=== PATIENT | male | born 1960 | race Caucasian/White ===

== ENCOUNTER 2021-03-08 09:17 | Inpatient (IN) | payer OTHER ==
[~2021-03-08] VITALS: Ht 182.9 cm; Wt 129.5 kg
[~2021-03-08 09:17] MED LIST: CLARITIN10 M2 PO; METHOCARBAMOL750 MG PO; NORCO 7.5-3251 EACH PO; OMEPRAZOLE20 MG PO; SSD20 GM TOP; TAMSULOSIN HCL0.4 MG PO
[2021-03-08] MEDS ORDERED: DICLOFENAC SODI75 MG PO (09:46)
[2021-03-08] MEDS ORDERED: FEXOFENADINE HC60 MG PO (09:46)
--- NOTE | 2021-03-08 13:27 | NUR ---
REPORT RECEIVED FROM CHELE RODRIGUEZ. AWAITING PTS ARRIVAL TO MED/SURG.
--- NOTE | 2021-03-08 13:49 | NUR ---
PT ARRIVED FROM ER. PT TRANSFERS SELF TO BED. PT ABLE TO STAND AND MARCH IN PLACE AND DENIES DIZZINESS OR FEELINGS OF LIGHTHEADEDNESS. OXGYEN SATURATIONS REMAIN 88-92% ON 2L O2 BY NC EVEN WITH ACTIVITY. PT AMBULATES TO RESTROOM WITH STAND BY ASSIST. PT DENIES PAIN AND NAUSEA. PT DENIES ANY RECENT EPISODES OF DIARRHEA. PT REPORTS HE HAS NOT LOST HIS SENSE OF TASTE OR SMELL. PT REPORTS OCCATIONAL NASUEA WITH COVID, DENIES EMEISIS. PT CONFIRMS WEEKNESS STATING "I DONT' HAVE THE ABILITY TO GET UP AND GO." PT DENIES ANY FEELS OF UNSTEADINESS ON FEET. LUNG SOUNDS CLEAR BUT FOR CORNESS NOTED IN RIGTH LOWER LOBE. PT REMAINS ON 2L O2 BY NC WITH OXGYEN SATURATIONS MAINTAINING ABOVE 90%. NOTED THAT PT NEEDED 4L O2 BY NC WITH AMBULATION. I.S. AND PRONING EDUCATION DONE WITH PT. PT DEMONSTRATES USE OF I.S. REACHIGN 2250ML X5. DRY COUGH NOTED. PT REPORTS HE OCCATIONALL COUGHS UP CLEAR/WHITE STUFF. PT DENIES LOSS OF TATES OR SMELL BUT DOES REPORT DECREASED APPITTIE WITH MINIMAL INTAKE FOR THE PAST FEW DAYS. MEDICATIONS GIVEN. PT DENIES ADDITIONAL REQEUSTS OR COMLAINTS. CALL LIGHT EDUCATION DONE. PT DEMONSTRATES UNDERSTANDING. BED RAILS UP. PT RESTING ON BACK. DECLINES SIDE LYING OR PRONING AT THSI TIME. REMAINS ON 2L O2 BY NC WITH OXGYEN SATURATIONS 90-93%.
--- NOTE | 2021-03-08 14:43 | NUR ---
PUMP ALARMING INFUSION AND FLUSH COMPLETE. IV ASSESSED, WNL. MEDICATION GIVEN AND IV SALINE LOCKED AT THIS TIME. OXGYEN SATURATION NOTED TO BE 86-89%. PT INCRESED TO 4L O2 BY NC. PT AGREES TO LYE ON RIGHT SIDE, CONTINUES TO DECLINE PRONE POSITION. OXGYEN SATURATINS RECOVER. OXGYEN SATURATIONS MAINTAINING ABOVE 90%. NO ADDITIONAL REQUESTS OR COMPLAINTS. CALL LIGHT WITHIN REACH. BED RAILS UP.
--- NOTE | 2021-03-08 15:38 | NUR ---
PT CALL LIGHT ON. PT REQUESTS STAND BY ASSIST WHILE UP TO RESTROOM. PT SITTING ON EDGE OF BED WITH OXGYEN SATRUATIONS 85%. RT CALLED FOR HIGH FLOW NC WITH HUMIDIFICATION. O2 INCREASED TO 8L O2 BY NC WITH ACTIVITY TO MAINTAIN STATUATIONS ABOVE 90%. STAND BY ASSIST UP TO RESTROOM. PT VOIDS WITHOUT ISSUE. STAND BY ASSIST BACK TO BED. PT ASSISTED TO SIDE LYING POSITION ON LEFT SIDE. PT WEANED BACK TO 6L O2 BY NC. HIGH FLOW NC WITH HUMIDIFICATION IN PLACE. PT DENEIS ADDITIONAL REQUESTS OR COMPLAINTS. CALL LIGHT WITHIN REACH. BED RAILS UP.
--- NOTE | 2021-03-08 16:00 | NUR ---
PTS SON VONNIE, CALLED AND UPDATED ON PTS STATUS AND PLAN OF CARE. VONNIE VERBALIZES UNDERSTANDING AND STATES HIS QUESTIONS HAVE BEEN ANSWERED.
--- NOTE | 2021-03-08 16:54 | NUR ---
THIS RN TO ROOM TO CHECK ON PT. OXGYEN SATURATION 87% ON 6L O2 BY NC. PT SITTING ON EDGE OF BED REPORTING HE IS GETTING UP TO RESTROOM. OXYGEN INCREASED TO 8L O2 BY NC AND PT RECOVERS TO 90%. SBA UP TO RESTROOM. PT VOIDS WITHOUT ISSUE. SBA UP TO CHAIR FOR DINNER. PT REMAINS ON 8L O2 BY NC WHEN UP TO CHAIR TO MAINTAIN OXYGEN SATURATIONS ABOVE 90%. PT DENIES ADDITIONAL REQUESTS OR COMPLAINTS. CALL LIGHT WITHIN REACH.
--- NOTE | 2021-03-08 18:15 | NUR ---
THIS RN TO ROOM TO CHECK ON PT. PT REMAINS UP TO CHAIR, FINISHING DINNER. OXGYEN SATURATIONS 95% ON 8L O2 BY NC. PT DENIES REQUESTS OR COMPLAINTS. CALL LIGHT WITHIN REACH.
--- NOTE | 2021-03-08 18:33 | NUR ---
PT ADMITTED THIS SHIFT FOR COVID PNEUMONIA. PT ARRIVED ON 2L O2 BY NC BUT WAS FOUND TO NEED 6-8L O2 BY NC TO MAINTAIN OXYGEN SATURATIONS ABOVE 90% (6L AT REST AND 8L WITH ACTIVITY. PT UP WITH STAND BY ASSIST TO CHAIR AND RESTROOM. PRONING EDUCATION DONE WITH PT, PT HAS SO FAR DECLINED TO PRONE. PT DEMONSTRATES USE OF I.S WITH ENCOURAGMENT. PT DENIES DIARRHEA OR NAUSEA THIS SHIFT. NO LOSS OF TASTE OR SMELL NOTED BUT PT REPORTS MINIMAL APPITITE. D-DIMER ELVATED, CT AND CHEST X-RAY DONE. PT VOIDING QUANITTY SUFFICIENT. PT USES CALL LIGHT AND MAKES NEEDS KNOWN.
--- NOTE | 2021-03-08 18:57 | NUR ---
PT CALL LIGHT ON. PT REQUESTS ASSTANCE UP TO RESTROOM. STAND BY ASSIST UP TO RESTROOM. PT MAINTAINING OXGYEN SATURATIONS ABOVE 90% ON 8L O2 BY NC. STAND BY ASSIST BACK TO BED. PT RESTING ON BACK, DECLINES PRONING OR SIDE LYING AT THIS TIME. PT WEANED TO 6L O2 BY NC. NO ADDITIONAL REQUESTS OR COMPLAINTS. CALL LIGHT WITHIN REACH. BED RAILS UP.
--- NOTE | 2021-03-08 20:00 | NUR ---
PATIENT CURRENTLY WATCHING TV IN BED, PATIENT HAS NO CURRENT CARE NEEDS, O2 SAT 92% ON 6L/CN. CALL LIGHT IS IN REACH.
--- NOTE | 2021-03-08 22:08 | NUR ---
Patient via, SBA bathroom. vitals, I&Os are complete.
--- NOTE | 2021-03-08 22:24 | NUR ---
PATIENT UP TO THE BATHROOM INDEPENDENTLY AND BACK TO BED. PATIENT DENIES PAIN AND TOOK CODEINE COUGH SYRUP AND TESSALON JUAN CARLOS FOR COUGH. DR. BENJAMIN HAD BEEN CALLED ABOUT ORDERS FOR DICLOFENAC AND ALICE. ORDERED THE ALICE, BUT NONE AVAILABLE AT THIS TIME AND MOTRIN WAS PRESCRIBED FOR DISCOMFORT, BUT PATIENT DOES NOT WANT THIS HE STILL HAS DICLOFENAC IN HIS SYSTEM. DISCUSSED TURNING AND PRONING AND PATIENT KNOWLEGDEABLE. PATIENT IS TITRATING O2 WHEN HE GETS UP OR DOES ANYTHING. PATIENT CURRENTLY ON 6L/NC WITH O2 SATS AT 92% AND HR=70. CPOX BATTERY CHANGED AND NEW WATER AND WARM BLANKETS GIVEN. PATIENT HAS NO THER QUESTIONS OR NEEDS AT THIS TIME. LIGHTS ARE TURNED DOWN AND CALL LIGHT IS IN REACH.
--- NOTE | 2021-03-08 23:46 | NUR ---
PATIENT RESTING QUIETLY ON HIS LEFT SIDE AT THIS TIME. O2 SATS 89% ON 6L/NC. NO CURRENT CARE NEEDS NOTED. CALL LIGHT IS IN REACH.
--- NOTE | 2021-03-09 00:29 | NUR ---
PATIENT'S O2 SATS DROPPED TO 80% AND THIS RN WENT TO CHECK ON THE PATIENT. PATIENT WAS HAVING A COUGHING FIT THAT HAS NOW SETTLED AND 02 SAT IS 90% ON 6L/NC NOW. URINE IN THE BATHROOM DUMPED, PATIENT HAVING NO OTHER NEEDS AT THIS TIME. CALL LIGHT IS IN REACH.
--- NOTE | 2021-03-09 01:53 | NUR ---
Vitals, I&Os are complete. Patient is going to try to get some rest. Patient si curretly lying on his back, but may lay on side later after talking with the RN about proning.
--- NOTE | 2021-03-09 02:14 | NUR ---
PATIENT'S 2AM ASSESSMENT WAS COMPLETE AND VS WERE STABLE EXCEPT PATIENT'S O2 SATS HAVE BEEN SLOWLY DROPPING WHILE ON HIS LEFT SIDE, HAD PATIENT REPOSITION TO HIS RIGHT SIDE FOR ABOUT 15 MINUTES AND SATS ONLY GOT UP TO 89%. JUST TITRATED PATIENT UP TO 8L/NC AND PATIENT REMAINS ON HIS RIGHT SIDE WITH O2 SAT AT 90%. CALL LIGHT IS IN REACH.
--- NOTE | 2021-03-09 02:38 | NUR ---
PATIENT REMAINS ON HIS RIGHT SIDE, RESPIRATIONS ARE REGULAR AND EVEN, EYES ARE CLOSED, O2 SAT 92% ON 8L/NC HIGH FLOW. CALL LIGHT IS IN REACH.
--- NOTE | 2021-03-09 06:12 | NUR ---
Patient is lying awake somewhat on right side. Vitals, I&Os are complete.
--- NOTE | 2021-03-09 06:25 | NUR ---
PATIENTS VITALS TAKEN AND RECORDED. INTAKE AND OUPUT RECORDED. PATIENT DENIES ANY NEEDS. PATIENT DENIES ANY SOB. CALL LIGHT AND BELONGINGS ARE WITHIN REACH.
--- NOTE | 2021-03-09 07:46 | NUR ---
this rn received report from rosalina jean. pt sats 83-87% on 8l. pt states he "prones when he can" pt laying flat on back at this time. rosalina jean and this rn educated pt about repositioning himself onto his side
--- NOTE | 2021-03-09 09:00 | NUR ---
this rn in pts room to do pts morning meds and morning assessment. pt states in the am that his sats are lower than normal because he feels like he is spending a lot of time blowing his nose and getting the mucous out. this rn to provide pt with tessalon pearles and psuedfed for comfort. pt has no other concerns at this time.
--- NOTE | 2021-03-09 09:00 | NUR ---
this rn in pts room to do pts assessment and give meds. pt states that he has been attempting to change positions all night, pt states he is attempting to side prone all he can, this rn encouraged pt to do it more. pt states that all he is "try my best" this rn will continue to encourage pt to prone pt has no other concerns this am
--- NOTE | 2021-03-09 10:15 | NUR ---
PT OXYGENADJUSTED TO 10LPM FROM 8 LPM SPO2 WAS 84% ON 8LPM. SPO2 ON 10LPM WAS 90 AT REST . PT MAY REQUIRE PREOXYGENATION FOR MOVEMENT ACTIVITIES.
--- NOTE | 2021-03-09 10:21 | NUR ---
AFTER KATE FROM RT IN ROOM, PT UP TO RESTROOM, PT DESATED TO 82% ON 10L HIGH FLOW. THIS RN INSTRUCTED TO GET BACK TO BED SOON AND PRONE. PT STATES HE WILL- SATS FINALLY UP TO 93%.
--- NOTE | 2021-03-09 11:10 | NUR ---
THIS RN IN PTS ROOM TO TURN PT UP TO 11L HIGH FLOW DUE TO PT DESATING BETWEEN 87-90%. THIS RN DID NOTE THAT THE WALL MONITOR FOR PTS O2 WAS READING 91% WHILE TELE BOX WAS READING 88%. THIS RN TO UPDATE DANNI FROM RT.
--- NOTE | 2021-03-09 12:45 | NUR ---
CONNECTED WITH PT'S RN KARISSA THAT IF PT DESIRES I AM AVAILABLE TO CONNECT BY PHONE OR IN PERSON VISIT IF PT IS UP TO IT. SHE ACKNOWLEDGED
--- NOTE | 2021-03-09 13:57 | EKG ---
[facility] [address] [place] [address] Signed Normal sinus rhythm Incomplete right bundle branch block Borderline ECG When compared with ECG of 06-JAN-2020 15:13, No significant change was found Confirmed by YESENIA BENJAMIN MD ([id number]) on 03/09/2021 1:57:31 PM Electronically Signed By: YESENIA BENJAMIN MD 03/09/21 1357 PATIENT NAME: NOHEMYVONNIE HURLEY Electrocardiogram DATE OF : 62 PHYSICIAN: YESENIA BENJAMIN MD REPORT #: [id number] REPORT IS CONFIDENTIAL AND NOT TO BE RELEASED WITHOUT AUTHORIZATION
--- NOTE | 2021-03-09 15:00 | NUR ---
THIS RN IN PTS ROOM TO START REMDES. PT PRONING AND SATING BETWEEN 88-90%. PT STATES THAT HE DOESNT NEED ANYTHING FUTHER
--- NOTE | 2021-03-09 16:03 | NUR ---
C JAVA DEVELOPER SUGGESTS TO TRY AND SPEAK WITH PATIENT TOMORROW. WILL CHECK BACK AGAIN IN AM.
--- NOTE | 2021-03-09 17:00 | NUR ---
PT SHOME CPAP IN ROOM. KATE FROM RT ABLE TO GET PT TO HAVE 15L BLEED INTO CPAP- SATS IMPROVED TO 95%
--- NOTE | 2021-03-09 17:49 | NUR ---
PT HAD LOW SPO2 ALL DAY ON 15LPM NC , PT PLACED ON HOME CPAP THAT WAS JUST BROUGHT IN PRESSURE OF 9 HEATED HUMDITY WITH 15LPM BLEED IN AND TOLERATING IR WELL, PATIENT HAS BEEN INSTRUCTED TO TRY TO PRONE AND SWITCH POSITIONS OFTEN.
--- NOTE | 2021-03-09 19:52 | NUR ---
RECEIVED RPORT FROM DAY SHIFT RN. PATIENT IS RESTING IN BED WEARING HOME CPAP. PATIENT DENIES ANY NEEDS. CALL LIGHT IN REACH.
--- NOTE | 2021-03-09 21:52 | NUR ---
PATIENT ASSESMENT COMPLETED. PATIENT UP TO THE RESTROOM. PATIENT ABLE TO VOID. PATIENT IS BACK IN BED RESTING. PATIENTS SCHEDULED MEDICATIONS GIVEN PER ORDER. PATIENT PLACED HOME CPAP BACK ON AND IT HAS 15L BLED IN. PATIENT DENIES ANY SOB. VITALS TAKEN AND RECORDED. INTAKE AND OUTPUT RECORDED. PATIENT DENIES ANY NEEDS. CALL LIGHT IN REACH.
--- NOTE | 2021-03-10 01:50 | NUR ---
PATIENT IS RESTING IN BED WITH EYES CLOSED, WEARING HOME CPAP. PATIENTS CALL LIGHT IS WITHIN REACH. OXYGEN SATURATION IS 98%
--- NOTE | 2021-03-10 03:54 | NUR ---
PATIENT IS RESTING IN BED WEARING HOME CPAP AND EYES ARE CLOSED, RR 16. OXYGEN SATURATION IS 90%. CALL LIGHT IN REACH.
--- NOTE | 2021-03-10 06:21 | NUR ---
VITALS TAKEN AND RECORDED. INTAKE AND OUTPUT RECORDED. PATIENT DENIES ANY NEEDS. PATIENT REMAINS ON CPAP WITH 15 L BLED IN. CALL LIGHT IN REACH.
--- NOTE | 2021-03-10 07:33 | NUR ---
this rn received report from rosalina jean. pt on cpox to monitor o2 sats, pt in upper 90% on cpap with 15l bleed in
--- NOTE | 2021-03-10 07:59 | NUR ---
PT ON HOME UNIT CPAP PER REQUEST WITH 15+L BLEED O2. BBS DIMINISHED WITH SACATTERED RALES THROUGHOUT. PT ENCOURAGED TO PRONE MUCH POSSIBLE TODAY TO IMPROVE OXYGENATION. WOB OK PROTECTING OWN AIRWAY AT THIS TIME. BVM IN ROM.
--- NOTE | 2021-03-10 08:38 | NUR ---
this rn in pts room to give pt his morning meds and do morning assessment. pts only report this am is that he "needs to hear the noise in the cpap" this rn educated pt about trying to wean pt down on oxygen today and that sound might not be consistant today
--- NOTE | 2021-03-10 10:17 | NUR ---
PLACED ON VISION CPAP PER DR BENJAMIN. DEEDEE WELL WOB OK. BBS DIMINISHED WITH SCATTERED RALES IN BASES.
--- NOTE | 2021-03-10 12:30 | NUR ---
THIS RN IN PTS ROOM TO FINAL DRESSING CUTTER PTS BATTERY. PT STATES THAT HE IS DOING WELL AND NEEDS NOTHING FURTHER AT THIS TIME
--- NOTE | 2021-03-10 12:45 | NUR ---
this rn in pts room to check on pt. pt atticipating lunch at this time
--- NOTE | 2021-03-10 14:00 | NUR ---
pt got his lunch around this time. pt not happy that he ordered his meal and it had not arrived.
--- NOTE | 2021-03-10 15:30 | NUR ---
this rn in pts room to check on pt. pt still adamet that he will get up to pee. pt does desat to 82-85% on 15l high flow. catrachita started at this time.
--- NOTE | 2021-03-10 17:45 | NUR ---
this rn in pts room to check on t. pt states that he has important documents to sign. this rn made plan with pt to have pts drop off papers to sign and return right away. kyree jean able to meet pts at [phone] to accomplish this task. pt grateful.
--- NOTE | 2021-03-10 20:00 | NUR ---
PATIENT RESTING QUIETLY IN BED ON HIS RIGHT SIDE, RESPIRATIONS REGULAR ON CPAP. CALL LIGHT IS IN REACH. O2 SATS 93% WITH A HR=66. PATIENT HAS NO CURRENT CARE NEEDS. CALL LIGHT IS IN REACH.
--- NOTE | 2021-03-10 21:50 | NUR ---
PATIENT BACK IN BED AFTER USING THE BATHROOM INDEPENDENTLY AND WAS USING 15L/HIGH FLOW NC. BACK ON CPAP OF 12 WITH 45% FIO2. VS STABLE AT SATS OF 91%. ICE WATER REFILLED, TRASH EMPTIED, MELATONIN, TYLENOL, TESSALON JUAN CARLOS, AND COUGH SYRUP GIVEN. PATIENT REPOSITIONED TO HIS LEFT SIDE HE HAD BEEN LAYING ON HIS RIGHT. PATIENT CALL LIGHT IN REACH AND HE HAS NO OTHER NEEDS AT THIS TIME.
--- NOTE | 2021-03-11 00:06 | NUR ---
PATIENT SUPINE FOR THE MOMENT, O2 SAT 92% ON CPAP 12 AND FIO2 45%. EYES ARE CLOSED, PATIENT'S EYES ARE CLOSED AND NO CARE NEEDS NOTED AT THIS TIME. CALL LIGHT IS IN REACH.
--- NOTE | 2021-03-11 01:35 | NUR ---
PATIENT'S O2 SATS DROPPED INTO THE LOW 80'S WHILE PATIENT IN THE BATHROOM ON 15L/HIGH FLOW NC. PATIENT BACK IN BED NOW AND BACK ON CPAP AND O2 SATS=89%. URINE IN THE BATHROOM DUMPED AND CALL LIGHT IS IN REACH. PATIENT HAS NO OTHER CARE NEEDS AT THIS TIME.
--- NOTE | 2021-03-11 02:30 | NUR ---
PATIENT HAD ROLLED ON TO HIS BACK AND O2 SAT DROPPED TO 80%. HAD PATIENT TURN UP ON TO HIS RIGHT SIDE AND O2 SATS=88%. PATIENT REMAINS ON CPAP 12 FIO2 45%. CALL LIGHT IS IN REACH.
--- NOTE | 2021-03-11 04:30 | NUR ---
PATIENT UP TO THE BATHROOM INDEPENDENTLY AND O2 SATS DROPPED TO 71% BRIEFLY AND THEN BACK TO BED ON HIS CPAP AND O2 SATS=89%. PATIENT HAS NO CARE NEEDS AT THIS TIME AND CALL LIGHT IS IN REACH.
--- NOTE | 2021-03-11 05:18 | NUR ---
PATIENT WAS COLD AND 2 NEW WARM BLANKETS PLACED ON PATIENT AND ICE JONES REFILLED. AM ASSESSMENT COMPLETE AND PATIENT HAD NO CURRENT CARE NEEDS. PATIENT 89% O2 SAT ON CPAP 12/FIO2 45%. CALL LIGHT IS IN REACH.
--- NOTE | 2021-03-11 06:10 | NUR ---
CHECKED IN WITH STAFF YESTERDAY A FEW TIMES. PATIENT WAS UNCOMFORTABLE, SOB AND USING CPAP AND THEY SUGGESTED WAITING ANOTHER DAY. WILL CHECK AGAIN TODAY.
--- NOTE | 2021-03-11 07:15 | NUR ---
PATIENT REPORT GIVEN TO CHELE ATKINS. PATIENT HAS NO STATUS CHANGES SINCE LAST RN NOTE.
--- NOTE | 2021-03-11 10:41 | NUR ---
REPORT RECEIVED FROM NIGHT RN AND PT. CARE RESUMED. PT IS ALERT AND ORIENTED . HE STATES HE IS FRUSTRATED AND NOT HAPPY. HE REFUSED BREAKFAST, YOGURT WAS NOT SEALED. NEW ONE ORDERED. ON CPAP 12 PRESS., 45% FIO2. DISCUSSED PRONING. PT. BECAME ANGRY AND REFUSED. TURNS TO SIDES INDEPENDENTLY. IV SITE FLUSHES WELL AND WNL. LUNGS DIM. IN THE BASES. DISCUSSED POC AND MEDS. PT. LEFT RESTING WITH CALL LIGHT IN REACH.
--- NOTE | 2021-03-11 12:21 | NUR ---
CHECKED WITH RN DORETHAPT IS ON CPAP AND WOULD NEED TO ARRANGE AHEAD OF TIME FOR PHONE VISIT. WILL CONNECT AND MAKE ARRANGEMENT
--- NOTE | 2021-03-11 14:30 | NUR ---
PT ON CPAP AND SETTINGS REMAIN 12 P, 45% FIO2. LAYING ON HIS SIDE AND TURNING HIMSELF. PT. HAS A NONPRODUCTIVE COUGH. PT. IS IN A MORE PLEASANT MOOD. GIVEN ICE WATER. LEFT RESTING WITH CALL LIGHT IN REACH.
--- NOTE | 2021-03-11 16:28 | NUR ---
PATIENT CONTINUES TO WEAR CPAP AND HIGH OXYGEN AND HAS HARD OF HEARING. CALLED LAYA FOR ASESSMENT QUESTIONS. PATIENT USES NO DME OTHER THAN CPAP AT HOME WHICH IS THROUGH [facility]. SHE IS NOT SURE IF HE WANTS TO USE THEM FOR OXYGEN IF NEEDED. PATIENT DRIVES, IS EMPLOYED. SHE STATES THEY HAVE NO CONCERN FOR AFFORDING MEDS/FOOD/UTILITIES. QUESTIONS ANSWERED. CM WILL CONTINUE TO FOLLOW.
--- NOTE | 2021-03-11 17:30 | NUR ---
PT. 02 SAT AT 70% AND SUSTAINED. CHECK ON PT. AND HE IS UP TO THE BATHROOM ON HIGH FLOW 02. HE STATES HE IS FINE AND HAVING BM. PT. AMBULATED BACK TO BED AND PLACED ON CPAP. O2 SAT RETURNED TO 90%.
--- NOTE | 2021-03-11 19:10 | NUR ---
SHIFT REPORT RECEIVED FROM MILLY ELAINE. PT RESTING IN BED. SPO2 96% ON CPAP 12/45%. TELE ON. CALL LIGHT IN REACH.
--- NOTE | 2021-03-11 21:07 | NUR ---
ASSESSMENT, VS AND I&O COMPLETED. GCS 15, A&O X4. IV WNL. LUNGS CLEAR IN UPPER LOBES, DIM IN LOWER LOBES. HEART TONES REGULAR. ABD SOFT, NONTENDER, BOWEL TONES ACTIVE. SCHEDULED MEDS PROVIDED. PT REPORTS 3/10 GENERALIZED PAIN, PRN PAIN MED PROVIDED. PRN COUGH MEDS PROVIDED. CMS INTACT. PT ON CPAP 12/45%, SPO2 96%. LAYING ON LEFT SIDE. PRONE AND SIDE POSITIONING EDUCATION PROVIDED. ICE WATER PROVIDED. NO OTHER NEEDS. CALL LIGHT IN REACH.
--- NOTE | 2021-03-12 00:05 | NUR ---
PT RESTING IN BED ON SIDE. CPAP 12/45%. SPO2 92%. CALL LIGHT IN REACH.
--- NOTE | 2021-03-12 02:00 | NUR ---
PT RESTING IN BED. SPO2 97% ON CPAP 12/50%. CALL LIGHT IN REACH.
--- NOTE | 2021-03-12 03:45 | NUR ---
PT NOTED TO HAVE AN SPO2 OF 72%. PT OFF CPAP AND ON 15L HIGH FLOW NC IN THE BATHROOM. PT BACK TO BED IMMEDIATELY AND BACK ON CPAP 12/50%, SPO2 RAISES TO 90% IN A COUPLE OF MINUTES. PT GIVEN EDUCATION ON USE OF OXYGEN, USING URINAL AND PRE-OXYGENATION BEFORE ACTIVITY. PT LAYING ON SIDE. ASSESSMENT COMPLETED. LUNGS CLEAR IN UPPER LOBES, DIM IN LOWER LOBES. IV WNL. PT HAS AN OCCASSIONAL, DRY COUGH. RT NOTIFIED OF SPO2 DROPPING, WILL BRING DOWN A NRB MASK. NO OTHER NEEDS. CALL LIGHT IN REACH.
--- NOTE | 2021-03-12 07:43 | NUR ---
pt UP TO VOID ON NON REBREATHER AND BACK TO BED. BACK ON CPAP. CALL LIGHT WITHIN REACH.
--- NOTE | 2021-03-12 09:00 | NUR ---
REPORT RECEIVED FROM NIGHT RN AND PT. CARE RESUMED. PT. IS ALERT AND ORIENTED. CPAP IN PLACE AND SETTINGS ARE 12, 50%. PT. POSITIONED ON SIDES AND TURNS HIMSELF TO SIDE BUT WILL NOT PRONE. IV SITE WNL AND FLUSHES. PT. STATES GENERALIZED ACHES, BUT REFUSES PAIN MED. DISCUSSED POC AND MEDS. LEFT RESTING WITH CALL LIGHT IN REACH.
--- NOTE | 2021-03-12 15:40 | NUR ---
NO CHANGE IN DISCHARGE PLAN.
--- NOTE | 2021-03-12 19:45 | NUR ---
PT RESTING IN BED. SPO2 92% ON CPAP . SHIFT REPORT RECEIVED FROM MILLY ELAINE. CALL LIGHT IN REACH.
--- NOTE | 2021-03-12 21:00 | NUR ---
ASSESSMENT COMPLETED. GCS 15, A&O X4. LUNGS CLEAR IN UPPER LOBES AND DIM IN LOWER LOBE. ABD SOFT, NONTENDER, BOWEL TONES ACTIVE. CMS INTACT. IV WNL, CDI, FLUSHED WELL. SPO2 93% ON CPAP 12/50%. NO OTHER NEEDS. CALL LIGHT IN REACH.
--- NOTE | 2021-03-12 21:30 | NUR ---
in to get vitals, i&os done, pt up to void, ice water refilled
--- NOTE | 2021-03-13 | NUR ---
PT RESTING IN BED, EYES CLOSED. SPO2 96% ON CPAP 12/50%. CALL LIGHT IN REACH.
--- NOTE | 2021-03-13 03:00 | NUR ---
PT SPO2 RANGING NEAR 84% AFTER USING THE BR AND APPEARS TO MAINTAIN IN THE MID 80s RANGE. PT REPOSITIONED ON SIDE, LEADS CHECKED, FINGER PROBE PLACED ON ANOTHER FINGER. SPO2 DOES NOT INCREASE WITH CHANGES, RT NOTIFIED. ASSESSMENT COMPLETED. LUNGS CLEAR IN UPPER LOBES, DIM IN LOWER LOBES. IV WNL. ICE WATER AND WARM BLANKETS. NO OTHER NEEDS. CALL LIGHT IN REACH.
--- NOTE | 2021-03-13 05:00 | NUR ---
PT RESTING IN BED. SPO2 92% ON CPAP 12/75%. CALL LIGHT IN REACH.
--- NOTE | 2021-03-13 07:45 | NUR ---
REPORT RECEIVED FROM NIGHT RN AND PT. CARE RESUMED. PT. IS ALERT AND ORIENTED. ON HIS SIDE WITH CPAP IN PLACE. ASSISTED WITH SITTING UP AND PLACED ON HIGH FLOW O2 AT 15L FOR BREAKFAST. PT. O2 SAT DROPPED TO 77% AND DID NOT IMPROVE. R.T. IN THE ROOM. R.T. STATES THAT THERE ARE NOT ENOUGH VAPOTHERMS FOR HIM TO HAVE WHILE EATING. DISCUSSED GOING BACK ON CPAP IMMEDIATELY AFTER EATING WITH PT. LUNGS DIM. IN THE RLL. RR IS 34. IV SITE WNL AND FLUSHES WELL. DISCUSSED MEDS AND POC. PT. LEFT RESTING WITH CALL LIGHT IN [facility].
--- NOTE | 2021-03-13 11:00 | NUR ---
THIS NURSE IS ROUNDING ON PT. HE IS ON HIS SIDE WITH CPAP IN PLACE. O2 SAT. IS 93%. PT ASSISTED WITH REMOVING CPAP TO BLOW HIS NOSE. HE STATES THAT HE HAS SINUS CONGESTION. HE HAS A PRODUCTIVE COUGH AT TIMES AND THICK, BROWN SPUTUM. PT. ASSISTED WITH REPOSITIONING IN BED. LEFT RESTING WITH CALL LIGHT IN REACH.
--- NOTE | 2021-03-13 17:15 | NUR ---
PT. IS RESTING ON HIS SIDE. PULSE OX OFF FINGER. PLACED BACK ON AND O2 SAT IS 96% ON CPAP. HE DENIES PAIN AT THIS TIME. LEFT RESTING WITH CALL LIGHT IN REACH.
--- NOTE | 2021-03-13 18:46 | NUR ---
PT. PLACED ON HIGH FLOW NC 15L FOR DINNER AND O2 SAT WAS 77%. NONREBREATHER PLACED OVER NC. 02 SATS REMAINED 80% OR LESS. RT CALLED. CHARGE NURSE STATES THERE WAS VERBAL ORDER FOR VAPOTHERM AND ENTERED THE ORDERED.
--- NOTE | 2021-03-13 19:15 | NUR ---
SHIFT REPORT RECEIVED FROM MILLY ELAINE. PT REPORTS 09/12 HARRIS, PRN TYLENOL PROVIDED. NO OTHER NEEDS AT THIS TIME. CALL LIGHT IN REACH.
--- NOTE | 2021-03-13 21:21 | NUR ---
ASSESSMENT, VS AND I&O COMPLETED. GCS 15, A&O X4. LUNGS CLEAR IN UPPER LOBES, FINE CRACKLES IN LOWER LOBES. HEART TONES REGULAR. ABD SOFT, NONTENDER, BOWEL TONES ACTIVE. CMS INTACT. IV WNL, CDI, FLUSHED WELL. SPO2 92% ON CPAP 12/65%. SCHEDULED MEDS PROVIDED. PRN COUGH MEDS PROVIDED. PT DENIES PAIN/HARRIS AT THIS TIME. ICE WATER PROVIDED. PT WILL USE BSC AFTER WE LEAVE AND CALL WHEN DONE. CALL LIGHT IN REACH.
--- NOTE | 2021-03-14 | NUR ---
PT RESTING IN BED. SPO2 90% ON CPAP 12/65%. CALL LIGHT IN REACH.
--- NOTE | 2021-03-14 02:00 | NUR ---
PT RESTING IN BED. SPO2 90% ON CPAP 12/65%. CALL LIGHT IN REACH.
--- NOTE | 2021-03-14 03:24 | NUR ---
SPO2 DROPS TO 85%. PT UP TO BSC AND BACK TO BED. PT WEARS CPAP TO BSC. O2 RETURNS TO 90% AFTER SEVERAL MINUTES. CALL LIGHT IN REACH.
--- NOTE | 2021-03-14 04:05 | NUR ---
PT SPO2 STAYING NEAR 88% AFTER REPOSITIONING. RT CALLED TO INCREASE FIO2. RT CHANGES CPAP SETTINGS 12/75%. SPO2 91% AT THIS TIME. CALL LIGHT IN REACH.
--- NOTE | 2021-03-14 04:21 | NUR ---
SPO2 DROPS TO 88% ON CPAP 12/75% AND STAYS THERE. RT RETURNING TO ROOM TO ASSESS.
--- NOTE | 2021-03-14 08:30 | NUR ---
REPORT RECEIVED FROM NIGHT RN AND PT. CARE RESUMED. PT. IS ON HIS SIDE ON CPAP SET TO 12/100%. LUNGS DIM. IN THE BASES WITH FINE CRACKLES RLL. PT. SAT UP ON EOB BED AND PLACED ON VAPOTHERM AT 40L/100%. O2 SAT REMAINED LESS THAN 80%. NONREBREATHER 15L PLACED OVER VAPO. PT. MEDS GIVEN AND THEN BACK ON CPAP. IV FLUSHES WELL. 2 IV ATTEMPTS FAILED. FLOAT NURSE WILL ATTEMPT. DISCUSSED POC AND TRANSFER. CALLED FOR UPDATE. PT. LEFT RESTING WITH CALL LIGHT IN REACH.
--- NOTE | 2021-03-14 13:51 | NUR ---
ROUNDING ON PT. HE IS LYING ON HIS SIDE WITH CPAP ON. DENIES WORSENING SOB. 02 SAT IS 91% AND RR IS 28. HE DENIES PAIN. LUNGS DIM. IN THE BASES. UPDATED ON C.T. AND TRANSFER PLAN. LEFT RESTING WITH CALL LIGHT IN REACH.
--- NOTE | 2021-03-14 15:23 | NUR ---
PT. TAKEN TO C.T. WITH TWO RN'S AND RT ON CPAP VIA BED. ALL BELONGINGS TRANSFERRED TO CCU. REPORT GIVEN TO CCU RN.
--- NOTE | 2021-03-14 16:02 | NUR ---
PATIENT ASSESSMENT COMPLETE. PATIENT IS ALERT AND ORIENTED X4. PATIENT LUNG SOUNDS ARE CLEAR IN THE UPPER LOBES AND DIMINISHED IN THE BASES. OXYGEN SATURATION IS 94% ON CPAP PRESSURE OF 12 AND FIO2 OF 70%. RR IS 26. PATIENT DENIES FEELING SHORT OF BREATH. HEART SOUNDS ARE WNL. HEART RATE IS 77 BPM AND IN A SINUS RYHTHM. PATIENT DENIES ANY PAIN. PATIENT HAS HAD NO BM SINCE 03/11. BOWEL TONES ARE ACTIVE. PATIENT UPDATED ON PLAN OF CARE. CALL LIGHT WITHIN REACH NO FUTHER NEEDS.
--- NOTE | 2021-03-14 19:27 | NUR ---
RECEIVED REPORT FROM CHELE RUBALCAVA. pt RESTING IN BED, SATS HIGH 80'S. EYES CLOSED, RESPIRATIONS REGULAR. CPAP SETTINGS 12/70%. CALL LIGHT WITHIN REACH.
--- NOTE | 2021-03-14 20:24 | NUR ---
UPDATE PROVIDED TO PATIENT'S BY THIS RN
--- NOTE | 2021-03-14 21:15 | NUR ---
IN TO DO ASSESSMENT. pt RESTING ON LEFT SIDE. REQUESTED PRN TYLENOL FOR GENERAL PAIN. DECLINED COUGH MEDICATIONS, SCHEDULED MEDS GIVEN (SEE MAR). LUNGS CLEAR AND DIM, pt HAS COUGH. RESPIRATIONS LOW TO MID 20'S. pt TOLERATING CPAP WELL. DEWEY CARE DONE. CALL LIGHT WITHIN REACH.
--- NOTE | 2021-03-14 22:00 | NUR ---
REPLACED ECG ELECTRODES, pt DENIES NEEDS AT THIS TIME. CALL LIGHT WITHIN REACH.
--- NOTE | 2021-03-15 00:30 | NUR ---
ROUNDED ON pt. RESTING IN BED WITH EYES CLOSED, RESPIRATIONS REGULAR, RATE LOW 20'S. CPAP SETTINGS 12/70% UNCHANGED, SATS LOW 90'S. CALL LIGHT WITHIN REACH.
--- NOTE | 2021-03-15 05:00 | NUR ---
pt DESATING, IN TO ASSESS. pt AWAKE AND DRINKING WATER. PROVIDED ICE WATER. ASSESSMENT DONE. NO CHANGES. LABS DRAWN. pt DENIES NEEDS. CALL LIGHT WITHIN REACH.
--- NOTE | 2021-03-15 07:30 | NUR ---
REPORT RECIEVED. PATIENT IS RESTING ON CPAP, FIO2-80, PRESSURE-12.
--- NOTE | 2021-03-15 09:00 | NUR ---
DR. RODRIGUEZ HERE TO SEE PATIENT. ASSESSMENT DONE. SITTING UP IN BED FOR BREAKFAST. O2 SOURCE TO VAPOTHERM AT 40 L/100% FIO2 AND NRBM 15 LITERS. TOOK YOGART. DESAT TO 77 WITH CAHNGE OF OXYGEN SOURCE. AFTER TAKING BREAKFAST, CPAP REAPPLIED.
--- NOTE | 2021-03-15 11:00 | NUR ---
THIS RN IN TO CHECK ON PT. PT LAYING IN BED ON THE CPAP AWAKE AND ALERT. PT TOOK A SIP OF WATER AT THIS TIME. PT REPORTED NO NEEDS WHEN ASKED. PT STILL RESTING IN BED AT THIS TIME, CALL LIGHT IN REACH, BED IN LOWEST POSITION, CPAP IN PLACE.
--- NOTE | 2021-03-15 11:55 | NUR ---
THIS RN IN TO CHECK ON PT AND RETAKE A BLOOD PRESSURE DUE TO A LOW READING. PT LAYING IN BED ON THE CPAP AT THIS TIME ALERT AND ORIENTED. PT DENIES HAVING ANY DIZZYNESS OR LIGHTHEADEDNESS AND STATES HE HAD JUST TURNED OVER FROM HIS SIDE. BLOOD PRESSURE CUFF READJUSTED AND TAKEN, NEW BP WNL (SEE CHART). PT REPORTS NO FURTHER NEEDS AT THIS TIME WHEN ASKED AND IS IN BED RESTING ON THE CPAP, WILL CONTINUE PLAN OF CARE. CALL LIGHT IN REACH, BED IN LOWEST POSITION.
--- NOTE | 2021-03-15 13:20 | NUR ---
THIS RN IN TO TAKE PT'S VITALS. PT LAYING IN BED ON THE CPAP AT THIS TIME AWAKE AND ALERT. LUNCH BROUGHT TO PATIENT AT THIS TIME. PT PLACED ON THE VAPOTHERM AT 40LPM 100% FIO2 WELL THE NONREBREATHER AT 15+L IN ORDER TO EAT. VITALS TAKEN AT THIS TIME WELL. PT NOW SITTING UP IN BED EATING LUNCH. PT REPORTS NO FURTHER NEEDS WHEN ASKED AT THIS TIME, CALL LIGHT IN REACH, BED IN LOWEST POSITION, SPO2 90-92%, WILL CONTINUE PLAN OF CARE.
--- NOTE | 2021-03-15 16:45 | NUR ---
PATIENT ASSESSMENT COMPLETE. PATIENT IS ALERT AND ORIENTED X4. LUNG SOUNDS ARE DIMINISHED THROUGHOUT. CPAP PRESSURE IS 12 FIO2 IS 80%. RR IS 30. PATIENT DENIES FEELING SHORTNESS OF BREATH. HEART SOUNDS ARE WNL. PATIENT IS IN A SINUS RYHTHM. URINE OUTPUT IS YELLOW AND CLEAR. NO BM TODAY BOWEL TONES ARE ACTIVE. PATIENT UPDATED ON PLAN OF CARE. NO QUESTIONS AT THIS TIME CALL LIGHT WITHIN REACH NO FUTHER NEEDS.
--- NOTE | 2021-03-15 19:38 | NUR ---
RECEIVED REPORT FROM CHELE RUBALCAVA. pt RESTING IN BED. NO REQUESTS AT THIS TIME. CALL AL WILKES. ON CPAP, 02 SATS 92%.
--- NOTE | 2021-03-15 20:45 | NUR ---
IN TO DO ASSESSMENT. pt RESTING ON RIGHT SIDE. ASSESSMENT DONE. LUNGS DIM THROUGHOUT. COUGH, PRODUCTIVE AT TIMES. pt MORE TALKATIVE THAN THE NIGHT BEFORE, JOKING AND SPEAKING FULL SENTENCES ON AND OFF THE CPAP. CPAP 12/80%. SATS LOW 90'S. DROPPED TO MID 80'S WHILE OFF TAKING MEDS AND DRINKS. DEWEY CARE DONE. CALL LIGHT WITHIN REACH.
--- NOTE | 2021-03-15 21:14 | NUR ---
LAYA CALLED FOR UPDATE WHICH WAS GIVEN. ALL QUESTIONS ANSWERED.
--- NOTE | 2021-03-15 22:28 | NUR ---
O2 SAT LOW 90'S. HR 54.
--- NOTE | 2021-03-16 00:15 | NUR ---
IN TO ASSESS. pt RESTING ON RIGHT SIDE. CPAP IN PLACE SETTINGS 12/80% O2 SAT LOW 90'S. RR 20. RESPIRATIONS REGULAR, WORK OF BREATHING UNCHANGED. DEWEY EMPTIED. PROVIDED FRESH WATER. CALL LIGHT WITHIN REACH.
--- NOTE | 2021-03-16 02:30 | NUR ---
ROUNDED ON pt. RESTING IN BED WITH EYES CLOSED, RESPIRATIONS REGULAR. CPAP SETTINGS UNCHANGED. CALL LIGHT WITHIN REACH.
--- NOTE | 2021-03-16 04:12 | NUR ---
ROUNDED ON pt. RESTING ON LEFT SIDE, EYES CLOSED, RESPIRATIONS REGULAR AND UNLABORED. CPAP 12/80%. CALL LIGHT WITHIN REACH.
--- NOTE | 2021-03-16 06:31 | NUR ---
NOTED DECREASED O2 SAT AND INCREASED HR. ROUNDED ON pt. AWAKE ON LEFT SIDE. CPAP SETTINGS 12 AND 80%. pt REPORTED HE HAD SLEPT "OKAY" GAVE PRN PAIN MED FOR 4/10 GENERALIZED PAIN, COUGH MEDICATIONS AND SCHEDULED MEDICATIONS. NO CHANGES IN ASSESSMENT. DEWEY DRAINING YELLOW/ORANGE URINE. WARM BLANKETS AND WATER PROVIDED. CALL LIGHT WITHIN REACH.
--- NOTE | 2021-03-16 06:39 | NUR ---
LAYA CALLED FOR UPDATE WHICH WAS GIVEN. ALL QUESTIONS ANSWERED.
--- NOTE | 2021-03-16 08:24 | NUR ---
PATIENT ASSESSMENT COMPLETE. PATIENT MEDICATIONS GIVEN ORDERED. PATIENT IS ALERT AND ORIENTED X4. LUNG SOUNDS ARE DIMINISHED. CPAP PRESSURE IS AT 12 AND FI02 IS 80%. RR IS 25-35. OXYGEN SATURATIONS IS 88-95%. PATIENT DENIES FEELING SHORT OF BREATH WHEN WEARING CPAP. WOB IS WNL. PATIENT HEART RATE HAS STAYED BETWEEN 70-85 BPM. SINUS RYHTHM. PATIENT COMPLAINS OF 2/10 PAIN. PAIN IS GENERALIZED THROUGHOUT. URINE OUTPUT IS CLEAR AND YELLOW. NO BM SINCE 03/12 TALKED TO PATIENT ABOUT THIS HE STATED "I DO NOT WANT ANYTHING FOR THIS I AM PASSING GAS AND DO NOT HAVE ANY PAIN IN THE STOMACH." BOWEL SOUNDS ARE ACTIVE. PATIENT UPDATED ON PLAN OF CARE. NO QUESTIONS AT THIS TIME. CALL LIGHT WITHIN REACH NO FUTHER NEEDS.
--- NOTE | 2021-03-16 08:54 | NUR ---
WOB OK DEEDEE CPAP WELL. PROTECTING OWN AIRWAY AT THIS TIME. BBS DIMINISHED THROUGHOUT WITH SCATTERED FINE RALES IN THE BASES.
--- NOTE | 2021-03-16 11:15 | NUR ---
Update from CCU RN. Pt CPAP and vapotherm.
--- NOTE | 2021-03-16 11:46 | NUR ---
PATIENT ASSESSMENT COMPLETE. PATIENT IS ALERT AND ORIENTED X4. LUNG SOUNDS ARE DIMINISHED THROUGHOUT. CPAP IS 12 PRESSURE AND FIO2 OF 70%. RR IS 18-25. DENIES FEELING SHORT OF BREATH. HEART SOUNDS ARE WNL. HEART RATE IS 70-80 BPM AND IN A SINUS RYHTHM. URINE OUTPUT IS CLEAR AND YELLOW. NO BM SINCE 03/11. DOES NOT WANT ANY INTERVENTIONS. PATIENT IS UPDATED ON PLAN OF CARE. NO QUESTIONS AT THIS TIME. CALL LIGHT WITHIN REACH.
--- NOTE | 2021-03-16 12:15 | NUR ---
SITTING UP IN BED FOR LUNCH. VAPOTHERM 40 LITERS/NRBM APPLIED WHILE EATING LUNCH.
--- NOTE | 2021-03-16 12:48 | NUR ---
CONNECTED WITH PT. HE WANTS TO SEE HIS . CONTACTED CHELE ABAD-SHE WILL MAKE IT HAPPEN. CONTACTED LAYA-SHE WILL COME TODAY AT 1530. CHELE FOUNTAIN AND CHELE ABAD UPDATED. WILL CONTINUE TO FOLLOW
--- NOTE | 2021-03-16 14:14 | NUR ---
PATIENT BED BATH COMPLETE. LINENS CHANGED. PATIENT TOLERATED IT WELL AND USED NRB AND VAPOTHERM TO COMPLETE. CALL LIGHT WITHIN REACH NO FUTHER NEEDS.
--- NOTE | 2021-03-16 17:34 | NUR ---
PATIENT ASSESSMENT COMPLETE. MEDICATIONS GIVEN ORDERED. PATIENT IS ALERT AND ORIENTED X4. PATIENT IS ON VAPOTHERM 40 LPM AND NRB AT 15 LITERS EATING DINNER. TOLERATING WELL OXYGEN SATURATION IS 93%. RR IS 25. DENIES FEELING SHORT OF BREATH. HEART RATE IS 70-80 BPM IN A SINUS RYHTHM. PATIENT HEART SOUNDS ARE WNL. URINE OUTPUT YELLOW AND CLEAR. NO BM 03/11. PATIENT REFUSES BOWEL CARE. BOWEL SOUNDS ARE ACTIVE. PATIENT IS UPDATED ON PLAN OF CARE. NO QUESTIONS AT THIS TIME. CALL LIGHT WITHIN REACH NO FUTHER NEEDS. IS PRESENT AT BEDSIDE.
--- NOTE | 2021-03-16 19:51 | NUR ---
ROUNDED ON pt. RESTING ON LEFT SIDE. CPAP SETTINGS 12/60%. RESPIRATIONS 22 O2 SAT 96%, HR 57. EYES CLOSED, RESPIRATIONS REGULAR. CALL LIGHT WITHIN REACH.
--- NOTE | 2021-03-16 20:32 | NUR ---
IN TO DO ASSESSMENT. pt RESTING IN BED ON BACK. SATS MID 90'S ON CPAP 12/60% Fi02. pt POSITIVE ABOUT DAY, TALKED ABOUT HAVING HIS 'S VISIT AND THE NEW MEDICATION HE WAS PUT ON. IN GENERAL HE FEELS A LITTLE BETTER THAN YESTERDAY. ABLE TO SPEAK IN COMPLETE SENTENCES FOR A FEW MINUTES WHILE OFF THE CPAP, TOOK HIS MEDICATIONS WITHOUT ISSUE. ASSESSMENT DONE. LUNGS DIM THROUGHOUT. BOWEL TONES ACTIVE. DEWEY OUTPUT YELLOW. DEWEY CARE DONE. pt REPOSITIONED TO LEFT SIDE. WARM BLANKETS AND WATER PROVIDED. PLAN OF CARE DISCUSSED. CALL LIGHT WITHIN REACH.
--- NOTE | 2021-03-16 22:18 | NUR ---
ROUNDED ON pt, RESTING ON RIGHT SIDE EYES CLOSED, RESPIRATIONS REGULAR RATE 22. O2 SAT HAS MAINTAINED MID TO HIGH 90'S. TITRATED CPAP TO 12/55%. CALL LIGHT WITHIN REACH.
--- NOTE | 2021-03-17 00:27 | NUR ---
ROUNDED ON pt. RESTING ON LEFT SIDE. CPAP IN PLACE SETTINGS 12/55%, pt SATS MAINTAINED 95% OR HIGHER, FiO2 TITRATED TO 50%. RESPIRATIONS REGULAR. DEWEY EMPTIED, URINE YELLOW. CALL LIGHT WITHIN REACH.
--- NOTE | 2021-03-17 02:19 | NUR ---
PTS O2 SATS DROPPING TO 75% WHILE ON CPAP. IN TO CHECK ON PT. PT HAD THE MASK PULLED OFF AND STATED HE HAD TO BREATHE THAT WAY. PLACED BACK ON VAPOTHERM AT 40L, 100% FIO2 WITH NON REBREATHER OVER THE TOP. PTS O2 SATS IMPROVE TO 93%. ENCOURAGED PT TO PRONE, HE STATES THAT HE CAN NOT DO THAT. PTS TEMP 98.0.
--- NOTE | 2021-03-17 02:40 | NUR ---
THIS RN IN TO ASSESS. pt SITTING UP IN BED ON VAPOTHERM 40L/100% WITH NRB OVER THE TOP. pt REPORTS HE DOESN'T KNOW WHAT HAPPENED. ASSESSMENT DONE. NO SIGNIFICANT CHANGES IN ASSESSMENT. pt GIVEN COUGH MEDICATION AND PAIN MEDS FOR 4/10 PAIN. TALKED WITH pt ABOUT OPTIONS. HE COULD NOT VERBALIZE WHAT MADE HIM FEEL LIKE HE COULDN'T BREATH OR WHAT CHANGES HE FELT. pt REQUESTED TO TRIAL THE CPAP AGAIN. PLACED ON CPAP 12/50%, SATS LOW 90'S. PROVIDED A COOL CLOTH AND CHANGED LINENS, pt DIAPHORETIC. pt TOLERATING CPAP. CALL LIGHT WITHIN REACH.
--- NOTE | 2021-03-17 03:27 | NUR ---
ROUNDED ON pt. RESTING IN BED WITH EYES CLOSED, RESPIRATIONS REGULAR. CPAP SETTINGS 12/50%, O2 SAT 94%. CALL LIGHT WITHIN REACH.
--- NOTE | 2021-03-17 04:13 | NUR ---
ROUNDED ON pt. RESTING ON LEFT SIDE ON CPAP. REPORTED HE FEELS BETTER. DESCRIBED HIS PRIOR EPISODE "I JUST COULDN'T GET AIR, I WANT TO GET OUT OF HERE AND GO HOME SOON." OFFERED ENCOURAGMENT ABOUT OXYGEN NEEDS THROUGHOUT THE SHIFT. FiO2 REMAINS AT 50% pt SATTING IN THE MID 90'S. FEELING "OKAY" AT THIS TIME. NO CHANGES IN ASSESSMENT. CALL LIGHT WITHIN REACH.
--- NOTE | 2021-03-17 06:39 | NUR ---
IN TO GIVE MEDICATION. pt RESTING IN BED ON RIGHT SIDE. REPORTS HE IS BREATHING "OKAY" LABS DRAWN, MEDICATION GIVEN. NO FURTHER REQUESTS AT THIS TIME. CALL LIGHT WITHIN REACH.
--- NOTE | 2021-03-17 07:36 | NUR ---
REPORT RECEIVED FROM NIGHTSHIFT RN, WILL CONTINUE PLAN OF CARE.
--- NOTE | 2021-03-17 08:25 | NUR ---
THIS RN IN TO ASSESS PT AND ADMINISTER SCHEDULED MEDICATIONS. PT LAYING IN BED AT THIS TIME ON THE CPAP, FIO2 50%, SPO2 90-95%. PT ALERT AND ORIENTED, PT REPORTS GENERAL ACHES AND REQUESTED MEDICATION FOR COUGH. VITALS TAKEN AND SCHEDULED MEDICATION ALONG WITH PRN TYLENOL AND COUGH MEDICATION ADMINISTERED (SEE MAR). ASSESSMENT DONE AFTERWARDS. PT BREAKFAST BROUGHT TO HIM AFTERWARDS, PT NOW SITTING UP IN BED AND HAS BEEN SWITCHED OVER TO THE VAPOTHERM AT 100% 40LPM WITH THE NONREBREATHER AT 15+L OVER THE VAPOTHERM, SPO2 MAINTAINING 90-94%. PT NOW EATING BREAKFAST AND REPORTS NO FURTHER NEEDS WHEN ASKED. CALL LIGHT IN REACH, BED IN LOWEST POSITION, WILL CONTINUE PLAN OF CARE.
--- NOTE | 2021-03-17 08:26 | NUR ---
PATIENT AWAKE IN BED, RN AT BEDSIDE. DEWEY EMPTIED. RN NOTIFIED.
--- NOTE | 2021-03-17 09:20 | NUR ---
warm wet towels provided, patient cleaning hands and face, states took a bedbath yesterday and doesnt need an entire bed bath today. using vapotherm and nonrebreather to recover after taking vapotherm off to clean in nose. saturation went down to 79% and back up to 94% after using both O2 sources.
--- NOTE | 2021-03-17 10:37 | NUR ---
PT CHECKED ON AT THIS TIME, PT AWAKE AND ALERT LAYING IN BED AND REPORTS NO NEEDS ASIDE FROM MORE WATER. CHELE SALAMANCA IN TO ROOM TO ASSIST AND PROVIDE PT WITH ICE WATER, WILL CONTINUE PLAN OF CARE.
--- NOTE | 2021-03-17 11:15 | NUR ---
PT CHECKED ON AT THIS TIME, PT LAYING IN BED ON HIS LEFT SIDE ON THE CPAP. PT REPORTS NO NEEDS AT THIS TIME WHEN ASKED, LUNCH ORDER TAKEN AT THIS TIME, WILL CONTINUE PLAN OF CARE. CALL LIGHT IN REACH, BED IN LOWEST POSITION.
--- NOTE | 2021-03-17 12:55 | NUR ---
THIS RN IN TO ASSESS PT AND TAKE VITALS. PT LAYING IN BED ON THE CPAP AT 10 AND FIO2 AT 50%, SPO2 90-94%. PT DENIES HAVING ANY PAIN OR SHORTNESS OF BREATH AT THIS TIME. PT VITALS TAKEN AND PT ASSESSED. PT LUNCH THEN BROUGHT TO HIM AT THIS TIME, PT CHANGED OVER TO THE VAPOTHERM AT 40LPM AND 100% FIO2, NONREBREATHER MASK AT 15+L AND AT BEDSIDE IF NEEDED. PT SPO2 MAINTAINING AT 91-92% WHILE ON THE VAPOTHERM. PT REPORTS NO FURTHER NEEDS AT THIS TIME WHEN ASKED AND IS NOW EATING LUNCH, CALL LIGHT IN REACH, BED IN LOWEST POSITION, PT ON THE VAPOTHERM, SPO2 92-94% NOW, WILL CONTINUE PLAN OF CARE.
--- NOTE | 2021-03-17 14:44 | NUR ---
PATIENT AWAKE IN BED, REQUESTS FOR BEDDING TO BE ADJUSTED UNDERNEATH HIM. IN ROLLING FROM SIDE TO SIDE, PATIENT BEGAN COUGHING AND O2SATS DECREASED TO LOW 80S. RN AT DOOR, FIO2 INCREASED TO 65%, PATIENT RECOVERED WELL. SATS NOW AT 93, FIO2 BACK DOWN TO 50%. DINNER ORDERED. CALL LIGHT AND PERSONAL ITEMS IN EASY REACH
--- NOTE | 2021-03-17 15:17 | NUR ---
THIS RN IN TO TAKE VITALS AND ASSESS PT. PT SITTING UP IN BED ON THE CPAP AT THIS TIME AT 50% FIO2. PT SPO2 92 AT THIS TIME. PT DENIES HAVING ANY PAIN AT THIS TIME OR SHORTNESS OF BREATH. PT VITALS TAKEN AND PT ASSESSED (SEE CHART). PT REPORTS NO FURTHER NEEDS AFTERWARDS, PT PROVIDED WITH ICE WATER PER HIS REQUEST. PT FIO2 TITRATED DOWN TO 45% AT THIS TIME, SPO2 MAINTAINING AT 92%, PT DENIES SHORTNESS OF BREATH. WILL CONTINUE PLAN OF CARE. CALL LIGHT IN REACH, BED IN LOWEST POSITION.
--- NOTE | 2021-03-17 16:50 | NUR ---
THIS RN IN TO CHECK ON PT AND ADMINISTER SCHEDULED MEDICATIONS. RT IN ROOM AT THIS TIME AND CHANGED PT FROM THE CPAP AT 10 AND 50% TO THE VAPOTHERM AT 15L 100%. PT ABLE TO MAINTAIN SATURATIONS AT 90-94% AND REPORTED NO SHORTNESS OF BREATH. AFTERWARDS SCHEDULED MEDICATION ADMINISTERED (SEE MAR). PRN COUGH MEDICATION ALSO ADMINISTERED PER PT'S REQUEST (SEE MAR). PT REPORTED NO FURTHER NEEDS AFTERWARDS AND STILL DENIES SOB, SPO2 MAINTAINING AT 94%. WILL CONTINUE PLAN OF CARE. CALL LIGHT IN REACH, BED IN LOWEST POSITION.
--- NOTE | 2021-03-17 17:50 | NUR ---
THIS RN IN TO BRING PT HIS DINNER AND ADMINISTER SCHEDULED MEDICATION. PT SITTING UP IN BED ON 15L 100% FIO2 ON THE VAPOTHERM, SPO2 94%. PT DENIES SOB AT THIS TIME WHEN ASKED AND DENIES HAVING ANY PAIN. SCHEDULED MEDICATION ADMINISTERED AT THIS TIME (SEE MAR). PT PROVIDED WITH HIS DINNER AFTERWARDS AND IS NOW EATING IT. PT REPORTS NO FURTHER NEEDS WHEN ASKED, PT'S IN ROOM AT THE BEDSIDE. CALL LIGHT IN REACH, BED IN LOWEST POSITION, VAPOTHERM IN PLACE, SPO2 92-94%, DEWEY DRAINING, WILL CONTINUE PLAN OF CARE.
--- NOTE | 2021-03-17 20:35 | NUR ---
PT MOVED TO ROOM 114 FROM [facility] @ 2024. ALL PERSONAL SUPPLIES CAME WITH HIM. STAYED IN ROOM FRESH ICE WATER GIVEN, PERSONAL SUPPLIES ORGANIZED FOR PT, ON VAPORTHERM. CALL LIGHT WITHIN REACH.
--- NOTE | 2021-03-17 21:50 | NUR ---
Pt on 15L/100% vapotherm, switched to cpa with O2 by RT. slightly irritable, stewart mood but cooperative. Lungs dim at bases, 2SL patent, heart rate bradychardia at 59, no c/o cp or sob, abd soft, ru, f/c patent. repositions self in bed. toleratiang fluids well, dry non productive cough at this time. uses call light, repositions self in bed. denies c/o pain. on Airborne isolation precautions
--- NOTE | 2021-03-18 01:20 | NUR ---
RESTING, USING CPAP/BIPAP, TELE/CPOX #[address] SATS 94%. TURNS AND REPOSITIONS SELF, F/C PATENT, CALL LIGHT AND FLUIDS AT BEDSIDE
--- NOTE | 2021-03-18 02:04 | NUR ---
resting, using cpap/bipap, no distress. f/c patent. turns and repositions self
--- NOTE | 2021-03-18 04:25 | NUR ---
pt using cpap/bipap, started desatting to 76% as per cpox/tele, c/o increased sob. took cpap mask off, changed to vapotherm 15L 100%. sats 80%, R28, c/o increaesd sob, lungs w/o changes from earlier. RT called, vapotherm increased to 22L 100%, sats 84-90%, pt declines proning positioning and declines to have increased. O2 increased to 25L/100% vapotherm, still declines to prone.
--- NOTE | 2021-03-18 04:45 | NUR ---
non rebreather given at 15L, O2 sats increaed to 91%, continues to have frequnet moist productive cough, then left at bedside to use prn if he desats again.Vapotherm at 25L 100% on. says he is comofrtable laying on his back. Tolerating liquids well, no emesis, f/c patent, draining large amount of medium yellow urine.
--- NOTE | 2021-03-18 05:21 | NUR ---
back on cpap, as per tele sats 93%
--- NOTE | 2021-03-18 06:52 | NUR ---
PT HAS USED VAPOTHERM 15L/100% AT BEGINING OF SHIFT, THEN SWITCHED TO CPAP, AT HS, HAD BEEN SLEEPING SOUNDLY AND WOKE UP COUNGHING C INCREASED ANXIETY, DESATTED TO 76%, SWITCHED TO BOTH VAPOTHERM WITH NRB W 15L, SATS PER TELE#2 INCREAED TO 91%, THEN DECREAESD AGAIN, PT RELUCTAN TO DO PRONING, TURNED AFTER SEVERAL CUES TO HIS LEFT SIDE, BACK ON CPAP AND HAS STAYED AT 90-95%, RECEIVED ROBITUSSIN SYRUP PER INCREAED MOIST PRODUCTIVE COUGH, MILDLY EFFECTIVE. TOLERATING LARGE AMOUNTS OF LIQUIDS, NO EMESIS. F/C PATENT, DRAINING DARK YELLOW COLORED URINE QS, 2 SL PATENT. IRRITABLE SCHREIBER MOOD T/O THIS SHIFT, COOPERATIVE WITH SOME PROCEDURES
--- NOTE | 2021-03-18 07:25 | NUR ---
Shift report received from RN Falguni pt resting safely in bed w/ call light in reach. 94% on CPAP.
--- NOTE | 2021-03-18 08:40 | NUR ---
PT RESTING IN BED SAFELY W/ CALL LIGHT IN REACH. PT SWTICHED FROM CPAP TO VAPOTHERM 25LPM AND 100% FIO2, O2 STATS 95%. MORNING ASSESMENT COMPLETE AND SCHEDULED MEDS GIVEN PER PROVIDER ORDERS. PT DENIES ANY NEEDS AT THIS TIME
--- NOTE | 2021-03-18 10:35 | NUR ---
PT C/O 10/12 PAIN GENERALIZED, STATES BED IS VERY UNCOMFORTABLE, PRN TYLENOL GIVEN PER PT REQUEST/PROVIDER ORDER. O2 STATS 93% ON VAPOTHERM 25LPM AND 100% FIO2. PT ALSO ASSISTED W/ SET UP TO BRUSH TEETH, PT DENIES ANY OTHER NEEDS AT THIS TIME CALL LIGHT W/ IN REACH
--- NOTE | 2021-03-18 11:13 | NUR ---
Vitals, I&Os are complete. Call light is in reach.
--- NOTE | 2021-03-18 12:00 | NUR ---
PT SITTING UP IN BED EATING LUNCH, PT DENIES ANY NEEDS AT THIS TIME. PT 91% ON VAPOTHERM 25 LPM AND 100% FIO2.
--- NOTE | 2021-03-18 13:29 | NUR ---
Patient vitals, I&Os are complete. Call light is in reach.
--- NOTE | 2021-03-18 14:00 | NUR ---
Short conersation with pt. States he does not feel well and is nowhere ready to go home. Updated I am just checking for needs when he eventually goes home. Discussed 02. He states his father lived next door and had an 02 concentrator and he will use his concentrator if he can on dc. He uses [facility] for his CPAP supplies. I will contact and check how this would work. He denies other needs.
--- NOTE | 2021-03-18 14:30 | NUR ---
PT SITTING UP IN BED SAFELY WATCHING TV, W/ CALL LIGHT IN REACH. PT DENIES ANY SOB, O2 SATS 90% ON VAPOTHERM 25LPM AND 100%FIO2.
--- NOTE | 2021-03-18 16:01 | NUR ---
Called and spoke with Paulina at [facility] and she states 02 is prescription based and pt would need a new concentrator and tanks. I will update the patient.
--- NOTE | 2021-03-18 16:03 | NUR ---
Pt sitting up in bed w/ call light in reach, in room visiting. Pt denies any needs or SOB, O2 sats 94% on vapothern 25LPM and 100%FIO2.
--- NOTE | 2021-03-18 17:40 | NUR ---
Call light is in reach. Patient vitals, I&Os are complete. Visitor () is in room with mask on.
--- NOTE | 2021-03-18 18:06 | NUR ---
PT SITTING UP IN BED W/ CALL LIGHT IN REACH AND IN ROOM. NEW STAT LOCK FOR DEWEY PLACED ON INNER LEFT THIGH. PT DENIES SOB OR ANY OTHER NEEDS AT THIS TIME, O2 SATS 92% ON VAPOTHERM 25LPM AND 90%FIO2
--- NOTE | 2021-03-18 21:04 | NUR ---
pt using cpap, 10/45L. no distress tele/cpox #2 97%, lungs clear, dim at basees moist productive cough present. medicated with cough syrup w codeine took meds w/o problems, 2 sl patent. f/c patent, draining QS medium yellow urine, pt turns and repositions self. tolerating liquids well, no emesis, no c/o pain. on airborne isolation precautions. irritable mood but cooperative.
--- NOTE | 2021-03-18 23:38 | NUR ---
LAYING ON HIS LEFT SIDE, CPAP IN PLACE, NO DISTRESS, SATS PER TELE/CPOX #2 IS 99%. AFEBRILE NOW, KYUNG NEED FOR PAIN MED OR COUGH SYRUP. TURNS AND REPOSITIONS SELF IN BED. F/C PATENT
--- NOTE | 2021-03-19 05:38 | NUR ---
pt awake, slept, off cpap at this time, back on vapotherm , coop with assessment, lungs dim at bases other lópez clears, no sob with exertion noted, no bm since 03/13, abd soft,ru, non tender, denies need for stool softner. f/c patent, draining dark yellow urine, turns and repositions self in bed, tele#2/cpox sats 98%
--- NOTE | 2021-03-19 06:48 | NUR ---
C/O BEING SWEATY, WET WASH CLOTH GIVEN, DID FRONT OF BODY AND NURSE DID BACK, CLEAN GOWN IN PLACE. FEELS BETTER STATED, NO SOB, ON VAPOTHERM WATCVHNG TV.
--- NOTE | 2021-03-19 09:38 | NUR ---
Tylenol 500mg po and tessalon perles 100mg po admin for reports of headache and cough.
--- NOTE | 2021-03-19 09:53 | NUR ---
Vitals, I&Os are done. Call light is in reach. 300ml of water was refilled.
--- NOTE | 2021-03-19 11:02 | NUR ---
Patient doing well eating yogurt at meals. He drank a Premier Protein drink this morning as well. Reminded CHELE Caballero, to encouragae patient to eat a little more at meals such as a piece of toast with his yogurt in the morning or scrambled eggs or even soup or other items for lunch and dinner. He is on a regular diet. Will continue to monitor.
--- NOTE | 2021-03-19 14:33 | NUR ---
In to see patient; pt up to chair watching TV. Patient denies shortness of breath, respirations are even and non labored. Patient remains on 25L/85% Vapotherm. Barney remains intact; urine output clear yellow-q/s. No needs at this time. Personal supplies and call light within reach.
--- NOTE | 2021-03-19 15:04 | NUR ---
Tylenol 500mg po admin for reports of headache 11/12.
--- NOTE | 2021-03-19 15:05 | NUR ---
Spoke with Blaine and sarah, [facility] will supply him with a new concentrator and tanks. They state his dad's concentrator has been sitting for several months and will need to be cleaned. This causes him to be angry and he feels they are attempting to charge him more money and he may need to switch to [place]. Let him know I can send the rx to either, when and if he needs 02 on dc. He denies other needs. He states this is what I think of [facility] and flips the bird.
--- NOTE | 2021-03-19 16:46 | NUR ---
Patient's is in room. Patient is independently shaving with supplies given to him by [employer].
--- NOTE | 2021-03-19 17:25 | NUR ---
RN is in room. Patient's is in room still. Water was refilled. Call light is in reach.
--- NOTE | 2021-03-19 17:45 | NUR ---
Patient doing well sitting up in bed eating dinner. Patient remains on 25L/65% vapotherm, SP02 99% at this time. Patient's at bedside visiting. Vital signs stable, no pain reported. Personal supplies and call light within reach.
--- NOTE | 2021-03-19 19:30 | NUR ---
Shift report received from CHELE Caballero, pt resting in bed safely w/ call light in reach. Pt denies any needs at this time, O2 sats 100% on CPAP.
--- NOTE | 2021-03-19 20:00 | NUR ---
PT RESTING SAFELY IN BED W/ CALL LIGHT IN REACH, EYES CLOSED, RR EVEN AND UNLABORED, 100% ON CPAP.
--- NOTE | 2021-03-19 22:00 | NUR ---
PT WOKEN UP FOR EVENING ASSESMENT, PT SWITCHED OVER TO VAPOTHERM @ 25LPM AND 65% FIO2 TO TAKE SCHEDULED EVENING MEDS. PT C/O HARRIS AND CONSISTENT COUGH, PRN TYLENOL AND ROBITUSSIN GIVEN PER PT REQUEST/PROVIDER ORDER. PT THEN PLACED BACK ON CPAP, RESTING SAFELY IN BED W/ CALL LIGHT IN REACH AND NO OTHER NEEDS AT THIS TIME. O2 SATS 97%.
--- NOTE | 2021-03-20 00:03 | NUR ---
PT RESTING SAFELY IN BED W/ CALL LIGHT IN REACH AND EYES CLOSED, RR EVEN AND UNLABORED, 02 SATS 99% ON CPAP
--- NOTE | 2021-03-20 02:10 | NUR ---
Pt resting safely in bed w/ call light in reach and eyes closed, RR even and unlabored. O2 sats 92% on CPAP.
--- NOTE | 2021-03-20 04:00 | NUR ---
Pt resting safely in bed w/ call light in reach and eyes closed, RR even and unlabored. O2 sats 94% on CPAP
--- NOTE | 2021-03-20 06:37 | NUR ---
Pt resting safely in bed w/ call light in reach and eyes closed, RR even and unlabored. Pt easily awoken, morning Lovenox injection given per provider order, and pt switched from CPAP to Vapotherm 25LPM and 65%FIO2. Fresh ice water given, pt denies any other needs at this time. O2 sats 96%
--- NOTE | 2021-03-20 09:32 | NUR ---
Admin tylenol 500mg po, tessalon perles 100mg po and guaifenesin/codeine 5ml for cough and back pain.
--- NOTE | 2021-03-20 09:33 | NUR ---
PT WATCHING TV IN BED. VITALS I&O'S DONE. ROOM TIDIED, ICE WATER REFRESHED. PT BRUSHED TEETH TWICE. CALL LIGHT WITHIN REACH. NO FURTHER NEEDS AT THIS TIME.
--- NOTE | 2021-03-20 09:46 | NUR ---
Patient sitting up in bed watching tv. Patient reports he tolerated breakfast well. Patient on high flow nc @ 12L, spo2 reading 97% at this time. Decreased oxygen to 11L at this time, pt denies sob or distress. Fresh water provided. Barney in place, clear yellow urine noted. Patient has no needs. Encouraged patient to call staff when needed.
--- NOTE | 2021-03-20 11:51 | NUR ---
Oxygen decreased to 10L at this time. Patient's sp02 is currently 96% at this time, respirations even and non labored.
--- NOTE | 2021-03-20 14:28 | NUR ---
PT DOZING, IN AND OUT. VS AND I&O'S DONE. PT COMPLAINING OF FEELING 'ITCHY' DUE TO DRY SKIN. PT REFUSED LOTION. CALL LIGHT WITHIN REACH. NO FURTHER NEEDS AT THIS TIME.
--- NOTE | 2021-03-20 15:33 | NUR ---
PT WAS OFFERED A BEDBATH BUT DECLINED.
--- NOTE | 2021-03-20 16:21 | NUR ---
Patient offered shower at this time by electro mechanical technologist, pt declined. Warm wash cloth provided to patient. Patient denies shortness of breath at this time. Sp02 97% on 10L high flow nc. Oxygen decreased to 9L high flow nc at this time. Fresh water provided. Admin tylenol 500mg po for reports of headache.
--- NOTE | 2021-03-20 19:40 | NUR ---
PATIENT RESTING IN BED ON 8L/NC HIGH FLOW. PATIENT HAS NO CURRENT CARE NEEDS. O2 SAT=95% AND HR=88 PER CPOX. CALL LIGHT IS IN REACH.
--- NOTE | 2021-03-20 21:10 | NUR ---
PATIENT'S PM ASSESSMENT COMPLETE AND VS ARE STABLE. PATIENT TOOK HIS REGULARLY SCHEDULED MEDS ALONG WITH SOME TYLENOL FOR HARRIS OF 5/10 PAIN, TESSALON JUAN CARLOS AND COUGH SYRUP FOR COUGH, AND MELATONIN FOR SLEEP. PATIENT SWITHING OVER TO CPAP 10 WITH FIO2-35% FROM 8L/NC. PATIENT'S O2 SATS DROPPED TO 78% DURING THE EXCHANGE AND TURNING TO HIS LEFT SIDE. TOOK ABOUT 8 MINUTES FO PATIENT TO REBOUND AND IS BACK AT 93% NOW. ICE JONES HAVE BEEN REFILLED AND DEWEY EMPTIED. PATIENT HAS NO OTHER CARE NEEDS AT THIS TIME. CALL LIGHT IS IN REACH.
--- NOTE | 2021-03-20 23:27 | NUR ---
PATIENT RESTING QUIETLY ON HIS RIGHT SIDE, RESPIRATIONS REGULAR AND EVEN ON CPAP OF 10 WITH FIO2=35%, EYES ARE CLOSED, O2 SAT=93% WITH A HR=76. PATIENT HAS NO CURRENT CARE NEEDS AND CALL LIGHT IS IN REACH.
--- NOTE | 2021-03-21 01:16 | NUR ---
PATIENT RESTING QUIETLY ON HIS RIGHT SIDE, EYES CLOSED, ON CPAP OF 10 WITH FIO2=35%. O2 SATS=94% WITH HR=76 PER CPOX. PATIENT HAS NO CURRENT CARE NEEDS AND CALL LIGHT IS IN REACH.
--- NOTE | 2021-03-21 03:25 | NUR ---
PATIENT ON HIS LEFT SIDE, EYES CLOSED, RESPIRATIONS REGULAR AND EVEN ON CPAP 10 FIO2=35%, O2 SATS=96% AND HR=74 ON CPOX MONITOR. PATIENT HAS NO CURRENT CARE NEEDS AND CALL LIGHT IS IN REACH.
--- NOTE | 2021-03-21 05:52 | NUR ---
PATIENT AM ASSESSMENT COMPLETE, VS STABLE, DEWEY EMPTIED, ICE WATER REFILLED, CPAP OFF AND PATIENT ON 6L/NC HIGH FLOW NOW, O2 SATS=93%. DEWEY CARE DONE AND PATIENT ONLY WANTED WASHED WITH WATER NO SOAP, AFRAID OF A REACTION. PATIENT HAS NO OTHER CARE NEEDS AT THIS TIME. PATIENT SAYS HE SLEPT WELL ON THE CPAP.
--- NOTE | 2021-03-21 06:30 | NUR ---
DISCUSSED WITH PATIENT THAT WE DON'T HAVE A BOWEL MOVEMENT CHARTED FOR HIM SINCE 03/13/21. PATIENT SAYS HE BELIEVES THAT TO BE TRUE HE HAS HARDLY EATEN ANYTHING SINCE THEN . PATIENT'S ABD IS SOFT AND HE HAS BOWEL TONES. PATIENT DOES NOT FEEL OR BELIEVE HE IS CONSTIPATED. INFORMED HIM WE HAVE STOOL SOFTNERS AND LAXATIVES TO HELP HIM HAVE A BM, BUT HE DOES NOT BELIEVE HE NEEDS ANYTHING. HE THINKS HE MAY GET HIS DEWEY OUT TODAY AND START MOVING AROUND A BIT MORE AND WANTS TO WAIT AND SEE WHAT HAPPENS. CALL LIGHT DAVID WILKES. WILL PASS THIS INFORMATION ON TO DAYSHIFT.
--- NOTE | 2021-03-21 08:38 | NUR ---
Tylenol 500mg po, tessalon perles 100mg po and guaifenesin/codeine 5ml admin for reports of cough and headache. Patient reports doing well this morning, no shortness of breath. Pt continues on 6L high flow per nc, sp02 92% at this time. Patient has no current needs. Personal supplies and call light within reach.
--- NOTE | 2021-03-21 11:12 | NUR ---
PT COMPLAINS OF BEING TOO WARM. REMOVED BLANKET AND REPLACED PILLOW CASES. REFRESHED ICE WATER. TIDIED UP ROOM. CALL LIGHT WITHIN REACH. NO FURTHER NEEDS AT THIS TIME.
--- NOTE | 2021-03-21 11:24 | NUR ---
Patient requested to speak to his nurse. This RN to beside to see pt. Patient reports he would like to get up to the chair this afternoon, but not unitl his manuel catheter is removed. Patient requesting to know what times the provider will be in too see him today, told pt I was unsure when Dr. Castillo would be in. Told patient to call staff when he wants to sit up in the chair and we can assist him. No current distress or needs. Fresh water at bedside. Patient remains on 6L per nc, sp02 95%.
--- NOTE | 2021-03-21 15:09 | NUR ---
Patient in bed on phone at this time. No notable distress. Patient remains on 6L nc, sp02 95% at this time. No notable needs. Personal supplies and call light within reach.
--- NOTE | 2021-03-21 15:37 | NUR ---
PT IS IN A VERY PUT-OFF MOOD. PT DECLINES CHAIR. ROOM TIDIED. ICE WATER REFRESHED. CALL LIGHT WITHIN REACH. WARM BLANKETS BROUGHT. NO FURTHER NEEDS AT THIS TIME. PUT EXTRA SOCKS ON PT'S FEET PER PT'S REQUEST
--- NOTE | 2021-03-21 16:07 | NUR ---
In to see patient at this time. Patient sitting in bed watching tv, respirations even and non labored. Patient upset and reports he was waiting for this RN to remove his manuel catheter earlier this afternoon. This RN discussed with patient that I had no yet seen a provider order to remove his catheter, however I would be more than happy to ask Dr. Castillo at this time if I can remove the manuel and get him to chair. Patient states that he now would like the manuel removed first thing tmrw morning instead, as he reports it is "too late in the day" and he does not want to "piss himself in the chair all night". This RN asked pt what I can do to make his stay more comfortable, or if we could at least get up to chair and provide a bed bath, pt yet again declined. Patient requesting that I return to his bedside to report back as to whether or not the provider will place the manuel removal order for tomorrow early am. I told patient I would speak with Dr. Castillo to ensure the order is placed and we can have a plan of care in place. This RN and accident examiner have been in patient's room several times offering a bed bath and to get up to the chair, pt declines. Provided patient with tylenol 500mg at this time for continued headache. Encouarged patient to call staff when he has needs. Call light within reach.
--- NOTE | 2021-03-21 16:34 | NUR ---
Order obtained from Dr. Castillo to remove kaleb.
--- NOTE | 2021-03-21 16:40 | NUR ---
Patient placed to 4L nc, sp02 93% at this time. Patient has no respiratory distress.
--- NOTE | 2021-03-21 17:34 | NUR ---
PT IN A DISAGREEABLE MOOD. PT REQUESTED PERSONAL FRUIT CUP FROM [facility]. ONCE FRUIT CUP WAS DELIVERED, PT TOLD THIS OPTICIAN APPRENTICE HE DIDNT WANT IT ANYMORE AND TO PUT IT BACK. THIS OPTICIAN APPRENTICE UNDERSTANDS THAT ONCE SOMETHING IS BROUGHT INTO A COVID ROOM, IT IS NOT TO BE TAKEN OUT. SO THE FRUIT CUP WILL BE STAYING WHERE ITS AT. PT WANTS TO SPEAK TO DR ABOUT REMOVING HIS CATHETER. VS AND I&O'S DONE. ROOM TIDIED, ICE WATER REFRESHED. CALL LIGHT WITHIN REACH. NO FURTHER NEEDS AT THIS TIME.
--- NOTE | 2021-03-21 18:17 | NUR ---
DEWEY REMOVED AT 1800 WNL. HAD TO TALK PT INTO IT HE IS CONCERNED THAT HE SLEEPS SO HARD AND HAS HAD THE DEWEY IN SO LONG HE WILL NOT WAKE TO URINATE AND WILL PEE THE BED. PLACED A BSC NEXT TO BED AND URINAL ON NIGHT GAS WELDER HIS REACH. HAD A LONG CONVERSATION ALSO ABOUT HIS TREATMENT OF STAFF, HE APOLOGIZED AND STATED HE HAS APPRECIATED ALL THEY HAVE DONE AND DOES NOT MEAN TO COME ACROSS RUDELY.
--- NOTE | 2021-03-21 19:33 | NUR ---
RT WORKING WITH THIS PATIENT AT THE MOMENT. NO CURRENT CARE NEEDS. CALL LIGHT IS IN REACH. SHIFT REPORT RECEIVED FROM CHELE CALLAWAY.
--- NOTE | 2021-03-21 19:48 | NUR ---
PATIENT IN BED WATCHING TV, IN ROOM. VITALS AND I&O'S CHARTED. FRESH WATER GIVEN. URINAL EMPTIED AND PLACED BACK IN REACH OF PATIENT. RN ROSE MARIE COMING IN. CALL LIGHT IN REACH. NO FURTHER NEEDS AT THIS TIME.
--- NOTE | 2021-03-21 20:15 | NUR ---
PATIENT REQUESTED MEDICATION EARLY TO GO TO SLEEPP. MEDS GIVEN ALONG WITH TYLENOL FOR 4/10 HEADACHE AND COUGH SYRUP FOR COUGH. PATIENT HAS A FAMILY MEMBER VISITING SETTING ON THE COUCH. PATIENT VOIDING FINE NOW AFTER DEWEY BEING DC'D TODAY. PATIENT SWITCHING FROM NC TO CPAP OF 10 WITH FIO2=30%. O2 SAT 94%. ICE JONES WERE REFILLED BY COPY OPERATOR AND PATIENT HAS NO OTHER CARE NEEDS AT THIS TIME. CALL LIGHT IS IN REACH.
--- NOTE | 2021-03-21 22:05 | NUR ---
WENT IN THE ROOM TO ADJUST THE PATIENT'S CPOX SENSOR AND EMPTIED THE URINAL. PATIENT HAS NO OTHER CAERE NEEDS AT THIS TIME. CALL LIGHT IS IN REACH. 02 SAT=93%. ON CPAP.
--- NOTE | 2021-03-21 23:35 | NUR ---
PATIENT RESTING QUIETLY ON HIS RIGHT SIDE, RESPIRATIONS ARE REGULAR AND EVEN ON CPAP OF 10 WITH FIO2=30%, O2 SAT=95%. PATIENT HAS NO CARE NEEDS AT THIS TIME AND APPEARS TO BE SLEEPING. CALL LIGHT IS IN REACH.
--- NOTE | 2021-03-22 00:29 | NUR ---
PATIENT RESTING QUIETLY IN LOW FOWLERS POSITION, EYES CLOSED, RESPIRATIONS REGULAR AND EVEN ON CPAP 10 FIO2=30%. O2 SATS=94% WITH HR=71 PER CPOX MONITOR. CALL LIGHT IS IN REACH.
--- NOTE | 2021-03-22 02:07 | NUR ---
PATIENT RESTING QUIETLY ON HIS LEFT SIDE ON CPAP 10 FIO2=30%, O2 SATS=93%, EYES CLOSED, EMPTIED PATIENT'S URINAL, NO OTHER CARE NEEDS NOTED AT THIS TIME. CALL LIGHT IS IN REACH.
--- NOTE | 2021-03-22 03:52 | NUR ---
INFORMED BY CHELE PRIEST, THAT PATIENT REQUESTED TO SPEAK WITH THIS RN. PATIENT CHOKED ON SOME WATER HE WAS TRYING TO DRINK AND THEN DECIDED NOT TO GO BACK ON HIS CPAP. PATIENT BACK ON 4L/NC WITH O2 SAT=91%. PATIENT'S ICE WATER WAS REFILLED AND URINAL EMPTIED. PATIENT ALSO GIVEN TYLENOL FOR 4/10 HARRIS AND TESSALON PERLE FOR COUGH. PATIENT HAD NO OTHER CARE NEEDS AT THIS TIME. CALL LIGHT IS IN REACH.
--- NOTE | 2021-03-22 06:15 | NUR ---
PATIENT REMAINS AWAKE AND LAB JUST FINISHED DRAWING BLOOD. AM VS ARE STABLE AND AM ASSESSMENT COMPLETE AND I+O CHARTED. PATIENT REMAONS ON O2/4L/NC HIGH FLOW WITH O2 SAT OF 93%. PATIENT HAS NO OTHER CARE NEEDS AT THIS TIME AND CALL LIGHT IS IN REACH.
--- NOTE | 2021-03-22 07:19 | NUR ---
PATIENT UP TO BATHROOM, O2 INCREASED FROM 2L NC TO 4L NC WITH AMBULATION. LINENS FRESHENED.
--- NOTE | 2021-03-22 07:19 | NUR ---
REPORT RECIEVED FROM MEDIA SERVICES SPECIALIST RNROSE MARIE.
--- NOTE | 2021-03-22 08:32 | NUR ---
MORNING ASSESSMENT DONE, PATIENT IS UP TO CHAIR, DENIES NEEDS. PATIENT IS WEARING 4L 02 VIA NC, DENIES NEEDS.
--- NOTE | 2021-03-22 09:47 | NUR ---
MORNING MEDICATIONS GIVEN, PATIENT GIVEN ICE WATER WELL, TYLENOL GIVEN FOR BODY ACHES AND PATIENT HAS RETURNED TO BED TO BE MORE COMFORTABLE. PATIENT HAS MODERATE FOOD INTAKE, GOOD ORAL FLUID INTAKE.
[2021-03-22] MEDS ORDERED: ELIQUIS5 MG PO (11:08)
--- NOTE | 2021-03-22 11:14 | NUR ---
02 qualifier completed by Travis from RT. He visited my office and states concern pt may not be ready for dc as he will require 4L at rest and 8 L with exercise. He states pt did not tolerate ambulation well. I requested he speak with Dr. Castillo as pt needs a safe dc to home. He states pt is really wanting to go. I spoke with Dr. Castillo and she was not able to speak with Rt, she does state she spoke with pts and she stated concern as she will be working and pt will be home alone. [id number] Was able to speak with Travis and Dr. Castillo together and state concerns. Dr. Castillo feels pt should stay 1-2 more days before dc.
--- NOTE | 2021-03-22 11:39 | NUR ---
PATIENT HOME O2 QUALIFIER DONE, FULL PORTABLE 02 TANK FROM [facility] PLACED OUTSIDE OF ROOM.
--- NOTE | 2021-03-22 12:40 | NUR ---
Spoke with pt and updated. He is upset as did not return to speak with him and I updated she is going of shift at 2 pm and is still seeing pts. She asked I update him. We discussed his being home alone and he calls his and she states she states she feels he should do whatever he wants to do. I again discussed safe discharge and concern he will be alone. He is quite angry throughout our entire converstation. Also states he will not pay for Eloquis and they had better work something out. I asked if his insurance had denied payment and he states it hasn't been run yet. Requested pt "cross that bridge when we come to it". Notified pharmacy of his concern and Gwendolyn states if it is denied they will assist him, but she thinks his insurance will pay. Pt agrees to stay 1-2 more days, but wants everyone to know he is not happy.
--- NOTE | 2021-03-22 15:11 | NUR ---
PATIENT RESTING IN BED, TURNING SELF FROM SIDE TO SIDE. PATIENT URINAL EMPTIED, PATIENT GIVEN 2 WARM BLANKETS.
--- NOTE | 2021-03-22 17:37 | NUR ---
PATIENT'S SPOUSE IN ROOM WITH PATIENT. DISCUSSED FUTURE DISCHARGE AND EXPECTATIONS FOR PATIENT TO FURTHER RECOVER AT HOME. SPOUSE HAS A CONCERN THAT PATIENT CANNOT TOLERATE ACTIVITY AND WILL BE LEFT AT HOME ALONE DURING THE DAY. DISCUSSION ABOUT PATIENT LIMITING ACTIVITIES AT HOME FOR THE FIRST WEEK OR TWO.
--- NOTE | 2021-03-22 18:45 | NUR ---
PATIENT IN BED RESTING AT THIS TIME. FRESH WATER GIVEN. VITALS AND I&O'S CHARTED. CALL LIGHT IN REACH. NO FURTHER NEEDS AT THIS TIME.
--- NOTE | 2021-03-22 19:45 | NUR ---
REPORT RECEIVED FROM DAY SHIFT RN. PT LYING IN BED WITH EYES CLOSED. NO APPARENT DISTRESS. SpO2 93%. HR 80'S. CALL LIGHT IN REACH.
--- NOTE | 2021-03-22 21:13 | NUR ---
EVENING ASSESSMENT COMPLETE. SCHEDULED MEDS ADMINISTERED PER EMAR. PRN FOR COUGH AND HIP/BACK PAIN ADMINISTERED PER PT REQUEST. 4L/NC IN PLACE. PT DENIES SOB. RESPIRATIONS EVEN. URINAL EMPTIED. FRESH WATER PROVIDED. PT PLACED CPAP INDEPENDENTLY BEFORE THIS RN LEFT ROOM. DENIES FURTHER NEEDS. CALL LIGHT IN REACH.
--- NOTE | 2021-03-22 21:21 | NUR ---
EVENING ASSESSMENT COMPLETE. SCHEDULED MEDS ADMINISTERED PER EMAR. PRN FOR COUGH ADMINISTERED PER PT REQUEST. PT DENIES SOB. RESPIRATIONS EVEN. VAPOTHERM IN PLACE AT 40L/100% FiO2. DEWEY PATENT WITH CONCENTRATED URINE. ENCOURAGED PO INTAKE. ASSISTED TO REPOSITION IN BED. EXTRA BLANKETS PROVIDED. BED ALARM FOR SAFETY. NO FURTHER NEEDS AT THIS TIME. CALL LIGHT IN REACH.
--- NOTE | 2021-03-22 23:30 | NUR ---
PT RESTING IN BED WITH CPAP IN PLACE. SpO2 95%. HR 70'S.
--- NOTE | 2021-03-23 01:54 | NUR ---
IN ROOM TO EMPTY URINAL. PT WITH CPAP IN PLACE LYING ON LEFT SIDE. DENIES NEEDS.
--- NOTE | 2021-03-23 04:08 | NUR ---
PT RESTING IN BED WITH CPAP IN PLACE. SpO2 92%. RESPIRATIONS EVEN.
--- NOTE | 2021-03-23 05:29 | NUR ---
SpO2 NOTED TO BE MID 80'S. IN ROOM TO CHECK ON PT. PT REQUESTING TO HAVE CPAP REMOVED AND NC PLACED. PT HAD AN EPISODE OF COUGHING AND SATS DROPPED TO LOW 80'S. NC TITRATED TO 10L FOR LESS THAN 10 MINUTES MIN FOR PT TO RECOVER. SpO2 BACK UP TO HIGH 90'S. OXYGEN TITRATED BACK TO 4L/NC. PRN FOR GENERALIZED PAIN AND COUGH ADMINISTERED PER PT REQUEST. FRESH WATER PROVIDED. BREAKFAST ORDERED. PT DENIES FURTHER NEEDS. CALL LIGHT IN REACH.
--- NOTE | 2021-03-23 07:25 | NUR ---
this rn received report from jonas jean. pt appears to be resting at this time with cpox in place sating at 95% on 4l.
--- NOTE | 2021-03-23 08:10 | NUR ---
THIS RN IN PTS ROOM TO GIVE PT HIS BREAKFAST AND MORNING MEDS. PT COMPLAINING ABOUT HOW MUCH EGGS HE GOT STATING THERE WILL BE WASTE DUE TO HIS LOW APPETITE. PT STATES THAT HE IS FINE WITH THIS RN ELISA COOPER TO CHECK ON HIM DUE TO FEELING LONELY. THIS RN WILL COME BACK TO GET VITALS
--- NOTE | 2021-03-23 08:40 | NUR ---
THIS RN BACK IN PTS ROOM TO DO VITALS AND I&O'S. PT STATES THAT HE WANTS TO TRY AND WALK TO RESTROOM. THIS RN GOT PT EXTENSION TUBING AND TURNED PT UP TO 6L NC- PT STARTED TO DESAT TO HIGH 80'S (88%). THIS RN INCREASED O2 TO 8L NC WHILE PT ON TOILET PT STILL SUSTAINED AT 82-83%, THIS RN INCREASED O2 TO 10L. PT WAS ABLE TO RECOVER SHORTER THAN 10MINS ON RETURN TO BED.
--- NOTE | 2021-03-23 12:01 | NUR ---
this rn in pts room to provide pt with lunch. this rn also provided pt with ice water at this time as well. pt states that he needs nothing further and is thankful for care this am.
--- NOTE | 2021-03-23 13:51 | NUR ---
PT ALERT, ORIENTED AND ABLE TO TALK EASIER TODAY WITHOUT SOB MUCH. PT STILL NO NCO2. PT EXPRESS SOME UNHAPPINESS ABOUT NOT DCING YESTERDAY-FEELS THOUGH STAFF WERE NOT HONEST WITH HIM. GAVE HIM OPPORTUNITY TO VENT. GAVE ENCOURAGEMENT, PASSED ALONG INFO SHARED WITH ME TO [employer]. SHE WAS AWARE OF SITUATION
[2021-03-23] MEDS ORDERED: ELIQUIS5 MG PO (13:52)
--- NOTE | 2021-03-23 14:00 | NUR ---
Call from [facility] and they are unable to contact pts or pt. to set up 02. Went to pts room with Bladimir on the phone and asked who and when pt would like 02 set up. Pt would like his to be home and she does not get off work until after 3:30. Alejandro from [facility] will wait and set up 02 when gets home.
--- NOTE | 2021-03-23 14:35 | NUR ---
this rn discussed with pt about a ride home. pt states that his gets off of work at 3 and then has to meet leandro at the house and then can come get him.
--- NOTE | 2021-03-23 14:50 | NUR ---
Spoke with Nhung. She plans on dc to home and has called her sister to pick her up. She is awaiting dc papers. She states she now has an open card and thinks this will qualify her for the transplant list. She states she discussed with Dr. Lees and it was decided for her to not receive blood transfusion as this may make it harder in the future to received blood if she has a transplant. Plan is to go home, sister will assist her as needed. She will begin taking Iron and takes lactulose, so constipation will not be a problem. Denies further needs.
--- NOTE | 2021-03-23 15:46 | NUR ---
Returned call to . She is stating concern and wants to know what she will need to do to assist pt when he discharges. Instructed dc instructions will be with patient when he discharges. Discussed pt will need to stay home and rest. They should speak with the health dept for isolation for rules. Encouraged to have a walker available (they have 2) in case pt is unsteady on his feet. Let her know to call if she has any questions after dc and she thanked me. Pt will dc to home this afternoon, once 02 is set up in home. will transport. also has questions about working if pt cont. with symptoms and I asked her to call her work as employers have different rules.
== END 2021-03-23 16:45 | disposition home or self-care (01) | DRG 177 ==
LOC: ED 09:17 → MS 13:22 → CCU 03-14 15:30 → MS 03-17 20:38
PROVIDERS: ADMIT Internal Medicine; ATTEND Internal Medicine
PROC: 8E0ZXY6 Isolation (ICD-10-PCS; principal; 2021-03-08)
PROC: 5A09557 Assistance with Respiratory Ventilation, Greater than 96 Consecutive Hours, Continuous Positive Airway Pressure (ICD-10-PCS; 2021-03-08)
PROC: XW033E5 Introduction of Remdesivir Anti-infective into Peripheral Vein, Percutaneous Approach, New Technology Group 5 (ICD-10-PCS; 2021-03-09)
PROC: 3E0333Z Introduction of Anti-inflammatory into Peripheral Vein, Percutaneous Approach (ICD-10-PCS; 2021-03-09)
PROC: XW0DXM6 Introduction of Baricitinib into Mouth and Pharynx, External Approach, New Technology Group 6 (ICD-10-PCS; 2021-03-16)
DX: U07.1 COVID-19 (principal); J12.82 Pneumonia due to coronavirus disease 2019; J96.01 Acute respiratory failure with hypoxia; I26.99 Other pulmonary embolism without acute cor pulmonale; K21.9 Gastro-esophageal reflux disease without esophagitis; N40.0 Benign prostatic hyperplasia without lower urinary tract symptoms; Z88.8 Allergy status to other drugs, medicaments and biological substances; Z98.890 Other specified postprocedural states; Z79.899 Other long term (current) drug therapy
CPT/HCPCS: 71045; 71260; 80048; 80053; 82803; 84484; 85025; 85379; 85651; 93005; 93010; 94640; 94660; 94760; 94761; 94762; 94799; 99285-25; A9270; J1100; J1650; J7050; Q9967; U0003